=== PATIENT | female | born 1995 | race Caucasian/White ===

== ENCOUNTER 2021-02-23 15:26 | Emergency (ER) | payer OTHER ==
[~2021-02-23] VITALS: Ht 157.5 cm; Wt 65.5 kg
[2021-02-23 15:33] VITALS: BP 119/81; TEMP 98.4
[2021-02-23 16:21] LABS: BASO % 0.7 % (0.0-2.0); EOS # 0.1 K/mm3 (0.0-0.7); EOS % 2.2 % (0.0-4.0); GRAN # 2.6 K/mm3 (1.4-6.5); GRAN % 57.1 % (42.2-75.2); HEMATOCRIT 37.8 % (37.0-47.0); LYMPH # 1.6 K/mm3 (1.2-3.4); LYMPH % 33.9 % (20.0-51.0); MEAN CELL VOLUME 88 fl (80.0-100.0); MEAN CORPUSCULAR HEMOGLOBIN 30 pg (27-31); MEAN CORPUSCULAR HGB CONC 34 g/dl (33.0-37.0); MEAN PLATELET VOLUME 10.7 fl (7.4-10.4); MONO # 0.3 K/mm3 (0.1-0.6); MONO % 5.9 % (1.7-9.3); PLATELET COUNT 279 K/mm3 (130-400); RED BLOOD COUNT 4.29 M/mm3 (4.10-5.30); REDCELL DISTRIBUTION WIDTH-CV 12.6 % (11.5-14.5)
[2021-02-23 16:46] LABS: ALBUMIN 4.3 gm/dL (3.5-5.0); BILIRUBIN,TOTAL 0.4 mg/dL (0.2-1.2); CALCIUM 9.1 mg/dL (8.4-10.2); CREATININE, serum 0.87 mg/dL (0.57-1.11); POTASSIUM 3.6 mmol/L (3.5-4.5); TOTAL PROTEIN 6.8 gm/dL (6.2-8.1)
[2021-02-23] MEDS ORDERED: AMOXICILLIN 50500 MG PO (17:39)
[2021-02-23] MEDS ORDERED: NORCO 325 MG-51 TAB PO (17:39)
[2021-02-23 18:10] VITALS: PULSE 82
== END 2021-02-23 18:10 | disposition home or self-care (01) ==
LOC: COL.ER 15:26
PROVIDERS: Personal Emergency Response Attendant
DX: H57.11 Ocular pain, right eye (principal); H53.9 Unspecified visual disturbance
CPT/HCPCS: J1885; Q9967

== ENCOUNTER 2021-03-26 19:43 | Emergency (ER) | payer OTHER ==
[~2021-03-26] VITALS: Ht 157.5 cm; Wt 67.3 kg
[~2021-03-26 19:43] MED LIST: AMOXICILLIN 50500 MG PO; NORCO 325 MG-51 TAB PO
[2021-03-26 19:51] VITALS: TEMP 97.2
[2021-03-26 20:49] LABS: BASO % 0.6 % (0.0-2.0); EOS % 1.1 % (0.0-4.0); GRAN # 1.6 K/mm3 (1.4-6.5); GRAN % 44.7 % (42.2-75.2); HEMATOCRIT 40.1 % (37.0-47.0); HEMOGLOBIN 13.3 g/dl (12.5-16.0); LYMPH # 1.6 K/mm3 (1.2-3.4); LYMPH % 45.1 % (20.0-51.0); MEAN CELL VOLUME 91 fl (80.0-100.0); MEAN CORPUSCULAR HEMOGLOBIN 30 pg (27-31); MEAN CORPUSCULAR HGB CONC 33 g/dl (33.0-37.0); MEAN PLATELET VOLUME 10.1 fl (7.4-10.4); MONO # 0.3 K/mm3 (0.1-0.6); MONO % 8.5 % (1.7-9.3); PLATELET COUNT 258 K/mm3 (130-400); RED BLOOD COUNT 4.42 M/mm3 (4.10-5.30); REDCELL DISTRIBUTION WIDTH-CV 13.2 % (11.5-14.5)
[2021-03-26 21:07] LABS: ALBUMIN 4.1 gm/dL (3.5-5.0); BILIRUBIN,TOTAL 0.3 mg/dL (0.2-1.2); C-REACTIVE PROTEIN 0.15 mg/dL (0.00-0.50); CALCIUM 8.7 mg/dL (8.4-10.2); CREATININE, serum 0.75 mg/dL (0.57-1.11); POTASSIUM 3.9 mmol/L (3.5-4.5)
[2021-03-26 22:03] VITALS: BP 132/83; PULSE 82
== END 2021-03-26 22:03 | disposition home or self-care (01) ==
LOC: COL.ER 19:43
PROVIDERS: Nurse Practitioner
DX: R20.2 Paresthesia of skin (principal); Z86.16 Personal history of COVID-19

== ENCOUNTER 2021-06-22 23:54 | Emergency (ER) | payer OTHER ==
[~2021-06-22] VITALS: Ht 157.5 cm; Wt 68.2 kg
[2021-06-22 23:56] VITALS: BP 143/99; PULSE 69; TEMP 98
== END 2021-06-23 01:32 | disposition home or self-care (01) ==
LOC: COL.ER 23:54
DX: S16.1XXA Strain of muscle, fascia and tendon at neck level, initial encounter (principal); R22.0 Localized swelling, mass and lump, head; W22.01XA Walked into wall, initial encounter

== ENCOUNTER → 2021-07-11 | Outpatient (CLI) | payer OTHER | LOC: COL.RAD 13:18 | DX: M43.8X2 Other specified deforming dorsopathies, cervical region (principal); R29.2 Abnormal reflex; R20.2 Paresthesia of skin; R51.9 Headache, unspecified | CPT/HCPCS: A9575 ==

== ENCOUNTER 2021-10-02 16:16 | Emergency (ER) | payer OTHER ==
[~2021-10-02] VITALS: Ht 157.5 cm; Wt 65.5 kg
[2021-10-02 16:25] VITALS: TEMP 99
[2021-10-02 17:37] LABS: ALBUMIN 4.1 gm/dL (3.5-5.0); CALCIUM 9.3 mg/dL (8.4-10.2); CREATININE, serum 0.77 mg/dL (0.57-1.11); MAGNESIUM 1.8 mg/dL (1.6-2.6); PHOSPHOROUS 2.5 mg/dL (2.3-4.7); POTASSIUM 3.9 mmol/L (3.5-4.5)
[2021-10-02 17:44] LABS: TROPONIN-I 0.012 ng/mL (0.00-0.033)
[2021-10-02 18:17] VITALS: BP 122/86; PULSE 90
== END 2021-10-02 18:18 | disposition home or self-care (01) ==
LOC: COL.ER 16:16
PROVIDERS: Emergency Medicine
DX: R07.89 Other chest pain (principal); Z87.891 Personal history of nicotine dependence; Z28.310 Unvaccinated for COVID-19

== ENCOUNTER → 2021-10-14 | Outpatient (CLI) | payer OTHER | LOC: COL.RAD 12:28 | DX: R07.9 Chest pain, unspecified (principal); E83.59 Other disorders of calcium metabolism; N29 Other disorders of kidney and ureter in diseases classified elsewhere; Z82.49 Family history of ischemic heart disease and other diseases of the circulatory system | CPT/HCPCS: Q9967 ==

== ENCOUNTER 2021-10-20 18:55 | Emergency (ER) | payer OTHER ==
[~2021-10-20] VITALS: Ht 157.5 cm; Wt 65.5 kg
[2021-10-20 19:27] VITALS: TEMP 99.5
[2021-10-20] MEDS ORDERED: CARDIZEM 60MG T60 MG PO (19:27)
[2021-10-20 20:00] LABS: BASO # 0.1 K/mm3 (0.0-0.2); EOS # 0.1 K/mm3 (0.0-0.7); EOS % 1.6 % (0.0-4.0); GRAN # 4.3 K/mm3 (1.4-6.5); HEMATOCRIT 40.1 % (37.0-47.0); HEMOGLOBIN 13.6 g/dl (12.5-16.0); LYMPH % 28.8 % (20.0-51.0); MEAN CELL VOLUME 91 fl (80.0-100.0); MEAN CORPUSCULAR HEMOGLOBIN 31 pg (27-31); MEAN CORPUSCULAR HGB CONC 34 g/dl (33.0-37.0); MEAN PLATELET VOLUME 10.2 fl (7.4-10.4); MONO # 0.5 K/mm3 (0.1-0.6); MONO % 6.5 % (1.7-9.3); PLATELET COUNT 337 K/mm3 (130-400); RED BLOOD COUNT 4.39 M/mm3 (4.10-5.30); REDCELL DISTRIBUTION WIDTH-CV 12.9 % (11.5-14.5)
[2021-10-20 20:11] LABS: COLLECTION METHOD CLEAN CATCH
[2021-10-20 20:12] LABS: ALANINE AMINOTRANSFERASE 13 U/L (0-55); ALBUMIN 4.4 gm/dL (3.5-5.0); ALKALINE PHOSPHATASE 53 U/L (40-150); ANION GAP 11 mmol/L (7-16); AST,SGOT 13 U/L (5-34); BILIRUBIN,TOTAL 0.5 mg/dL (0.2-1.2); BLOOD UREA NITROGEN 11 mg/dL (7-19); CALCIUM 9.2 mg/dL (8.4-10.2); CARBON DIOXIDE 21 mmol/L (22-29); CHLORIDE 107 mmol/L (98-107); CREATININE, serum 0.84 mg/dL (0.57-1.11); GLUCOSE 102 mg/dL (70-99); LIPASE 40 U/L (8-78); POTASSIUM 3.8 mmol/L (3.5-4.5); SODIUM 139 mmol/L (136-145); TOTAL PROTEIN 7.5 gm/dL (6.2-8.1)
[2021-10-20 20:19] LABS: TROPONIN-I < 0.010 ng/mL (0.00-0.033)
[2021-10-20 21:02] LABS: URINE APPEARANCE Clear (CLEAR/HAZY); URINE BLOOD Negative (NEGATIVE); URINE COLOR Yellow (YELLOW); URINE GLUCOSE Negative (NEGATIVE); URINE KETONE Negative (NEGATIVE); URINE NITRATE Negative (NEGATIVE); URINE PROTEIN(semi-quant) Negative (NEGATIVE); URINE UROBILINOGEN 0.2 E.U/dL (0.2-1.0)
[2021-10-20 21:05] LABS: SQUAMOUS EPITHELIAL 0-2 /hpf (0-10); URINE BACTERIA Rare /hpf (NONE SEEN); URINE RBC 0-2 /hpf (0-2)
[2021-10-20 21:25] VITALS: BP 110/70; PULSE 75
== END 2021-10-20 21:25 | disposition home or self-care (01) ==
LOC: COL.ER 18:55
PROVIDERS: Nurse Practitioner Primary Care
DX: R07.89 Other chest pain (principal); Z28.310 Unvaccinated for COVID-19

== ENCOUNTER → 2021-11-05 | Outpatient (CLI) | payer OTHER ==
[~2021-11-05] MED LIST changes: +CARDIZEM 60MG T60 MG PO
== END ==
LOC: COL.RAD 14:23
DX: H05.3 Deformity of orbit (principal); J34.1 Cyst and mucocele of nose and nasal sinus

== ENCOUNTER 2022-12-13 01:11 | Emergency (ER) | payer OTHER ==
[~2022-12-13] VITALS: Ht 157.5 cm; Wt 65.9 kg
[2022-12-13 01:44] VITALS: TEMP 98.3
[2022-12-13] MEDS ORDERED: AMOXICILLIN 8751 TAB PO (04:54)
[2022-12-13 05:11] VITALS: BP 133/74; PULSE 71
== END 2022-12-13 05:11 | disposition home or self-care (01) ==
LOC: COL.ER 01:11
DX: H57.11 Ocular pain, right eye (principal); Z96.89 Presence of other specified functional implants; Z28.310 Unvaccinated for COVID-19

== ENCOUNTER 2023-11-24 22:54 | Emergency (ER) | payer BC ==
[~2023-11-24] VITALS: Ht 160 cm; Wt 71.8 kg
[~2023-11-24 22:54] MED LIST changes: +AMOXICILLIN 8751 TAB PO; +PREDNISONE20 MG PO
[2023-11-24 22:57] VITALS: TEMP 97
[2023-11-24] MEDS ORDERED: Ketorolac 15 MG/ML VIAL IM ONE (23:15)
[2023-11-25] MEDS ORDERED: Home HYDROcodone/Acetaminophen 5/325 MG #4 TABS/PACK PO ONE (00:30)
[2023-11-25 00:38] VITALS: BP 136/82; PULSE 95
== END 2023-11-25 00:35 | disposition home or self-care (01) ==
LOC: COL.ER 22:54
DX: I82.401 Acute embolism and thrombosis of unspecified deep veins of right lower extremity (principal); Z79.01 Long term (current) use of anticoagulants
CPT/HCPCS: J1650; J1885